=== PATIENT | male | born 1995 | race Caucasian/White ===

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

== ENCOUNTER 2017-01-13 01:19 | Emergency (ER) | payer OTHER ==
[~2017-01-13] VITALS: Ht 175.3 cm; Wt 76.5 kg
[2017-01-13 01:23] VITALS: TEMP 36.6; Ht 175.3 cm; Wt 76.5 kg
[2017-01-13] MEDS ORDERED: SODIUM CHLORIDE 0.9% 1000ML 1,000 ML IV STA (01:31)
[2017-01-13] MEDS ORDERED: LORAZEPAM 2 MG/ML 1 ML VIAL IV STA (01:31)
[2017-01-13] MEDS ORDERED: LORAZEPAM 1 MG TAB SL STA (01:38)
--- NOTE | 2017-01-13 02:58 | EMERGENCY ROOM VISIT NOTE ---
History First contact with patient: 01:26 Chief Complaint: ANXIETY Stated Complaint: SOB, LIGHTHEADED, CHILLS,NUMBNESS- REFERRED BY [facility] History of Present Illness The patient is a 21 year old male who presents to the Emergency Room with complaints of feeling anxious for the past several weeks who has seen a counselor a few times on campus. He is not currently on medications. Patient states he gets anxious and feels overwhelmed and then can't sleep. Patient states when he gets anxious he feels short of breath and breathes fast and starts to get tingling in his extremities. Patient had laboratory testing the other day at [facility] which was unremarkable to include baseline labs and a TSH. He does not want other blood work today. He is asking to speak to a counselor. Patient denies suicidal or homicidal ideations. Patient denies tobacco, alcohol or drug use. Patient has no other medical complaint per patient. Patient denies chest pain, fevers, abdominal pain, headache, cold symptoms. Review of Systems See HPI for pertinent positives & negatives. A total of 10 systems reviewed and were otherwise negative. Past Medical/Surgical History Medical Problems: (1) No Known Active Medical Problems Family History FH: heart disease Social History Smoking Status: Never Smoker Alcohol Use: none Drug Use: none Marital Status: single Housing Status: lives with roommate Occupation Status: [employer] student Current/Historical Medications No Active Prescriptions or Reported Meds Physical Exam Vital Signs Date Time Temp Pulse Resp B/P (MAP) Pulse Ox O2 Delivery O2 Flow Rate FiO2 01/13/17 01:23 36.6 80 20 134/86 97 Room Air Physical Exam VITALS: Vitals are noted on the nurse's note and reviewed by myself. Vital signs stable. GENERAL: Pleasant male anxious-appearing, in no acute distress, nondiaphoretic, well-developed well-nourished. SKIN: The skin was without rashes, erythema, edema, or bruising. There is no tenting of the skin. Capillary reflex less than 2 seconds. HEAD: Normocephalic atraumatic. EARS: External auditory canals clear, tympanic membranes pearly mcdermott without erythema or effusion bilaterally. EYES: Pupils equal round and reactive to light and accommodation. Conjunctivae without injection, sclerae without icterus. Extraocular movements intact. NOSE: Patent, turbinates without inflammation or discharge. MOUTH: Mucous membranes moist. Pharynx without erythema or exudate. Uvula midline. Airway patent. Tongue does not deviate. NECK: Supple without nuchal rigidity. No lymphadenopathy. No thyromegaly. Cervical spine is nontender. No JVD. HEART: Regular rate and rhythm without murmurs gallops or rubs. LUNGS: Clear to auscultation bilaterally without wheezes, rales or rhonchi. No dullness to percussion. No retractions or accessory muscle use. ABDOMEN: Positive bowel sounds x 4. Normal tympanic percussion. Soft, nontender, without masses or organomegaly. Carmona sign negative. No guarding or rebound tenderness. MUSCULOSKELETAL: No muscle atrophy, erythema, or edema noted. NEURO: Patient was alert and oriented to person place and time. Normal sensation to light and sharp touch. No focal neurological deficits. Psych: Pleasant, cooperative, good thought process Medical Decision & Procedures Medications Administered Medications (Trade) Dose Ordered Sig/Pili Route Start Time Stop Time Status Last Admin Dose Admin Lorazepam (Ativan Tab) 1 mg NOW STAT SL 01/13/17 01:38 01/13/17 01:39 DC 01/13/17 01:41 1 MG ED Course Prior records/ancillary studies reviewed. Triage Nursing notes reviewed. The patient's history was concerning for possible psychiatric disturbance. Differential diagnosis: Etiologies such as mood disorder, infection, hypoglycemia, electrolyte abnormalities, cardiac sources, intracerebral event, toxicologic, neurologic, as well as others were entertained. Physical examination: The physical examination was performed as above and was completely benign. No emergent medical pathologies were noted. ER treatment provided: Ativan On reassessment the patient felt better. Diagnostic interpretation by me: No diagnostic studies were performed based upon the history and physical examination. Consultation: A consultation was placed with mental health. The patient was evaluated by mental health in the emergency department and they felt admission was not warranted. The patient will follow-up with [facility] this Week per Twyla STRICKLAND. Exam and history seem consistent with anxiety. Patient was neurovascular and neurologically intact. No thoughts of suicidal or homicidal ideations. He spoke to the counselor and will follow up outpatient with health services. Patient was asked to rest, decrease stress and to follow-up health services rn behavioral health in a few days or here in the ER sooner for thoughts of hurting himself, homicidal ideations, worsening signs or symptoms or as needed. By the evaluation outlined above emergent etiologies such as infection, hypoglycemia, electrolyte abnormalities, cardiac sources, intracerebral event, toxicologic, neurologic,as well as others were deemed relatively unlikely. It appears the patient is dealing with a psychiatric disturbance. The pt informed about the findings as listed above. All questions were answered and pleased with the treatment. Return instructions were outlined and the patient was discharged in stable condition. Outpatient prescription management: Ativan Referral: Outpatient services were arranged by psychiatry. The patient will follow-up this week or return to the emergency department if symptoms worsen. Case reviewed with my attending. Medical Decision As above Medication Reconcilliation Current Medication List: was personally reviewed by me Blood Pressure Screening Patient's blood pressure: Normal blood pressure Impression Primary Impression: Acute anxiety Departure Information Dispostion Home / Self-Care Condition GOOD Prescriptions No Active Prescriptions or Reported Meds Referrals [facility] (PCP) Patient Instructions My [facility] Additional Instructions DO NOT drive, drink alcohol, operate machinery, or perform dangerous activities today. You were given medications in the ER that can affect your ability to safely function or operate a vehicle. Ativan 1 m tablet every 8 hours as needed for anxiety. No alcohol or driving on this medication. Rest and drink plenty of fluids as tolerated. Continue current medications. Return to the ER immediately for worsening or persistent anxiety, suicidal or homicidal ideations, abdominal pain, vomiting, fevers, chest pains, difficulty breathing, worsening of your condition, or as needed. Follow up with behavioral health specialist on campus in 2-3 days for a recheck of your current condition.
[2017-01-13] MEDS ORDERED: ATIVAN 1MG HOMEPACK PO ONE (03:00)
[2017-01-13 03:14] VITALS: BP 122/69; PULSE 72; O2SAT 98
== END 2017-01-13 03:31 | disposition home or self-care (01) ==
LOC: C.EDB 01:21
DX: F41.9 Anxiety disorder, unspecified (principal)

== ENCOUNTER 2017-02-07 05:10 | Emergency (ER) | payer OTHER ==
[~2017-02-07] VITALS: Ht 177.8 cm; Wt 75.9 kg
[2017-02-07 05:13] VITALS: TEMP 36.6; Ht 177.8 cm; Wt 75.9 kg
[2017-02-07] MEDS ORDERED: LORAZEPAM 1 MG TAB SL STA (05:34)
[2017-02-07] MEDS ORDERED: MONT1TAB3 PO (05:39)
[2017-02-07] MEDS ORDERED: PRLSR20 PO (05:40)
[2017-02-07] MEDS ORDERED: PRED20TA PO (05:40)
[2017-02-07] MEDS ORDERED: ALBU18002 INH (05:43)
[2017-02-07] MEDS ORDERED: FLVHFA110 INH (05:44)
[2017-02-07] MEDS ORDERED: ATIVAN 1MG HOMEPACK PO ONE (05:45)
--- NOTE | 2017-02-07 06:20 | EMERGENCY ROOM VISIT NOTE ---
History First contact with patient: 05:23 Chief Complaint: RESPIRATORY PROBLEMS Stated Complaint: BREATHING DIFFICULTIES,NUMBNESS,DRY MOUTH,FAST HR Nursing Triage Summary: Pt states, "I am very short of breath. I have a lot of numbness everywhere. I have a fast heart rate, not palpitations and my mouth is dry. I have a stuff nose. I feel like I'm suffocating. I couldn't sleep. I had a palpitation episode at 9pm last night then at 3am it started again." Denies cough. History of Present Illness The patient is a 21 year old male who presents to the Emergency Room with complaints of anxious and breathing fast and feeling like he can't catch his breath. Patient states he's been falling with obstructive from last ER visit. He's had a few therapy appointments already. Patient states the other day he was at health services for a cough and cold and he was given steroids and inhaler. Patient states he took the inhaler and made him more anxious. Patient denies chest pain, cough, fevers, headache, neck stiffness, sore throat , abdominal pain, suicidal or homicidal ideations. Review of Systems See HPI for pertinent positives & negatives. A total of 10 systems reviewed and were otherwise negative. Past Medical/Surgical History Medical Problems: (1) No Known Active Medical Problems Family History FH: heart disease Social History Smoking Status: Never Smoker Alcohol Use: none Drug Use: none Marital Status: single Housing Status: lives with roommate Occupation Status: [employer] student Current/Historical Medications Scheduled Fluticasone Propionate (Flovent Hfa), 2 PUFFS INH BID Montelukast Sodium (Singulair), 10 MG PO DAILY Omeprazole (Prilosec), 20 MG PO DAILY Prednisone (Prednisone), 20 MG PO DAILY/UD Scheduled PRN Albuterol Sulfate (Proair Respiclick), 2 PUFFS INH Q4H PRN for SOB/Wheezing Physical Exam Vital Signs Date Time Temp Pulse Resp B/P (MAP) Pulse Ox O2 Delivery O2 Flow Rate FiO2 02/07/17 05:13 36.6 80 18 125/74 95 Room Air Physical Exam VITALS: Vitals are noted on the nurse's note and reviewed by myself. Vital signs stable. GENERAL: Pleasant male anxious-appearing, in no acute distress, nondiaphoretic, well-developed well-nourished. SKIN: The skin was without rashes, erythema, edema, or bruising. There is no tenting of the skin. Capillary reflex less than 2 seconds. HEAD: Normocephalic atraumatic. EARS: External auditory canals clear, tympanic membranes pearly mcdermott without erythema or effusion bilaterally. EYES: Pupils equal round and reactive to light and accommodation. Conjunctivae without injection, sclerae without icterus. Extraocular movements intact. NOSE: Patent, turbinates without inflammation or discharge. No sinus tenderness. MOUTH: Mucous membranes moist. Pharynx without erythema or exudate. Uvula midline. Airway patent. Tongue does not deviate. NECK: Supple without nuchal rigidity. No lymphadenopathy. No thyromegaly. Cervical spine is nontender. No JVD. HEART: Regular rate and rhythm without murmurs gallops or rubs. LUNGS: Clear to auscultation bilaterally without wheezes, rales or rhonchi. No dullness to percussion. No retractions or accessory muscle use. ABDOMEN: Positive bowel sounds x 4. Normal tympanic percussion. Soft, nontender, without masses or organomegaly. Carmona sign negative. No guarding or rebound tenderness. MUSCULOSKELETAL: No muscle atrophy, erythema, or edema noted. NEURO: Patient was alert and oriented to person place and time. Normal sensation to light and sharp touch. No focal neurological deficits. Psych: Pleasant, cooperative, anxious-appearing Medical Decision & Procedures Medications Administered Medications (Trade) Dose Ordered Sig/Pili Route Start Time Stop Time Status Last Admin Dose Admin Lorazepam (Ativan Tab) 1 mg NOW STAT SL 02/07/17 05:34 02/07/17 05:35 DC 02/07/17 05:40 1 MG Lorazepam (Ativan 1MG Home Pack) 1 homepack UD ONCE PO 02/07/17 05:45 02/07/17 05:46 DC 02/07/17 05:40 1 HOMEPACK ED Course Prior records/ancillary studies reviewed. Triage Nursing notes reviewed. The patient's history was concerning for possible feeling anxious and difficulty catching his breath. Differential diagnosis: Etiologies such as anxiety, bronchitis, mood disorder, infection, hypoglycemia, electrolyte abnormalities, cardiac sources, intracerebral event, toxicologic, neurologic, as well as others were entertained. Physical examination: The physical examination was performed as above and was completely benign. No emergent medical pathologies were noted. ER treatment provided: Ativan On reassessment the patient felt better. Diagnostic interpretation by me: No diagnostic studies were performed based upon the history and physical examination. Exam and history seem consistent with anxiety. She has been here before for similar symptoms. He follows with health services psychiatric services. He is advised to follow back up with them. He is advised to stop the albuterol and prednisone as I feel like this is exacerbating his symptoms. He is advised to return to the ER mainly for chest pain, difficulty breathing, anxiety, depression, worsening signs or symptoms or as needed. By the evaluation outlined above emergent etiologies such as infection, hypoglycemia, electrolyte abnormalities, cardiac sources, intracerebral event, toxicologic, neurologic,as well as others were deemed relatively unlikely. It appears the patient is dealing with a psychiatric disturbance. The pt informed about the findings as listed above. All questions were answered and pleased with the treatment. Return instructions were outlined and the patient was discharged in stable condition. Outpatient prescription management: Ativan Referral: The patient was referred back to their therapist and health services for follow- up in 2 to 3 days for a recheck of the current condition. Medical Decision as above Medication Reconcilliation Current Medication List: was personally reviewed by me Blood Pressure Screening Patient's blood pressure: Normal blood pressure Impression Primary Impression: Anxiety Departure Information Dispostion Home / Self-Care Condition GOOD Referrals No Doctor, Assigned (PCP) Patient Instructions My [facility] Additional Instructions DO NOT drive, drink alcohol, operate machinery, or perform dangerous activities today. You were given medications in the ER that can affect your ability to safely function or operate a vehicle. Recommend that you stop the steroids and inhaler. Ativan 1 m tablet every 8 hours as needed for anxiety. No alcohol or driving on this medication. Continue your therapy with health services. Rest. Decrease stress. Return to ER sooner for chest pain, difficulty breathing, anxiety, depression, worsening signs or symptoms or as needed.
[2017-02-07 06:49] VITALS: BP 118/70; PULSE 70; O2SAT 98
== END 2017-02-07 06:52 | disposition home or self-care (01) ==
LOC: C.EDB 05:11
DX: F41.9 Anxiety disorder, unspecified (principal); Z82.49 Family history of ischemic heart disease and other diseases of the circulatory system; Z79.52 Long term (current) use of systemic steroids

== ENCOUNTER → 2017-03-11 | Outpatient (CLI) | payer OTHER ==
[~2017-03-11] MED LIST: ALBU18002 INH; FLVHFA110 INH; MONT1TAB3 PO; PRLSR20 PO
--- NOTE | 2017-03-14 14:56 | PULMONARY FUNCTION TEST ---
Spirometry showed a normal forced vital capacity. The FEV1 was slightly decreased to 77%. The FEV1/FVC ratio was 75%, which would still be considered normal. The mid flow rates were decreased to 59%. These results would be suggestive for small airways dysfunction. Repeat study done following bronchodilators showed an 18% improvement in FEV1 and a 21% improvement in small airways function. Advise clinical correlation.
== END | disposition home or self-care (01) ==
LOC: C.RC 12:45
PROVIDERS: ATTEND Family Medicine
DX: R06.02 Shortness of breath (principal)